=== PATIENT | female | born 1990 | race Caucasian/White ===

== ENCOUNTER 2016-08-04 19:55 | Emergency (ER) | payer OTHER ==
[~2016-08-04] VITALS: Ht 152.4 cm; Wt 94.0 kg
[2016-08-04 20:07] VITALS: BP 128/80; PULSE 81; RESP 18; TEMP 98.1; O2SAT 98
[2016-08-04] MEDS ORDERED: SODIUM CHLOR 0.9% 1000 ML INJ 1,000 ML IV SCH (21:41)
[2016-08-04 21:45] VITALS: BP 123/81; PULSE 73; RESP 16; O2SAT 97
[2016-08-04] MEDS ORDERED: SODIUM CHLORIDE 0.9% FLUSH 5 ML FLUSH IVF PRN (21:45)
[2016-08-04] MEDS ORDERED: ONDANSETRON HCL 4 MG/2 ML VIAL IVP ONE (21:45)
[2016-08-04] MEDS ORDERED: MORPHINE SULFATE 4 MG/ML INJ IV PUSH ONE (21:45)
--- NOTE | 2016-08-04 21:45 | PD ---
HPI . Abdominal pain Chief Complaint: GI Complaint Time Seen by Provider: 21:36 Travel History International Travel<30 days: No Contact w/Intl Traveler<30days: No Traveled to known affect area: No History of Present Illness HPI Patient presents with the acute onset of right-sided abdominal pain associated with nausea and vomiting. This started about 4:30 this afternoon. She reports approximately 10 episodes of emesis. She denies diarrhea. She denies fever. She denies urinary tract symptoms. She denies any previous similar history. PFSH Past Medical History ?: Not Social History Tobacco Use: No Allergies-Medications (Allergen,Severity, Reaction): Coded Allergies: No Known Allergies (Unverified , 08/04/16) Reported Meds & Prescriptions Reported Meds & Active Scripts Active Flomax (Tamsulosin HCl) 0.4 Mg Cap 0.4 Mg PO HS Percocet (Oxycodone-Acetaminophen) 5-325 mg Tab 1-2 Tab PO Q4H PRN Phenergan (Promethazine HCl) 25 Mg Tab 25 Mg PO Q6H PRN Review of Systems Except as stated in HPI: all other systems reviewed are Neg General / Constitutional: No: Fever, Chills Gastrointestinal: Positive: Nausea, Vomiting, Abdominal Pain, No: Diarrhea Genitourinary: Positive: Flank Pain, No: Urgency, Frequency, Dysuria Physical Exam Narrative GENERAL: This is a healthy-appearing young woman in no acute distress. SKIN: Warm and dry. HEAD: Atraumatic. Normocephalic. EYES: Pupils equal and round. ENT: No nasal bleeding or discharge. Mucous membranes pink and moist. NECK: Trachea midline. CARDIOVASCULAR: Regular rate and rhythm. Heart sounds are normal. RESPIRATORY: No accessory muscle use. Lungs are clear with full air movement throughout. GASTROINTESTINAL: Abdomen soft, non-tender, nondistended. I am unable to elicit any tenderness to palpation. Back has no CVA tenderness. MUSCULOSKELETAL: No obvious deformities. No edema. NEUROLOGICAL: Awake and alert. No obvious cranial nerve deficits. Motor grossly within normal limits. Normal speech. PSYCHIATRIC: Appropriate mood and affect; insight and judgment normal. Data Data Last Documented VS Vital Signs Date Time Temp Pulse Resp B/P Pulse Ox O2 Delivery O2 Flow Rate FiO2 08/04/16 21:46 16 98 Room Air 08/04/16 21:45 73 123/81 08/04/16 20:07 98.1 Orders Complete Blood Count With Diff (08/04/16 21:41) Comprehensive Metabolic Panel (08/04/16 21:41) Lipase (08/04/16 21:41) Urinalysis - C+S If Indicated (08/04/16 21:41) Ct Abd/Pel W/O Iv Contrast (08/04/16 21:41) Iv Access Insert/Monitor (08/04/16 21:41) Ecg Monitoring (08/04/16 21:41) Oximetry (08/04/16 21:41) Morphine Inj (Morphine Inj) (08/04/16 21:45) Ondansetron Inj (Zofran Inj) (08/04/16 21:45) Sodium Chlor 0.9% 1000 Ml Inj (Ns 1000 M (08/04/16 21:41) Sodium Chloride 0.9% Flush (Ns Flush) (08/04/16 21:45) Ed Urine Pregnancytest Poc (08/04/16 21:41) Ketorolac Inj (Toradol Inj) (08/05/16 00:00) Tamsulosin (Flomax) (08/05/16 00:00) Oxycodone-Acetamin 10-325 Mg (Percocet 1 (08/05/16 00:00) Labs Laboratory Tests Test 08/04/16 08/04/16 21:15 22:20 Urine Collection Type VOIDED Urine Color YELLOW Urine Turbidity SLIGHT Urine pH 6.5 Urine Specific [place] 1.027 Urine Protein TRACE mg/dL Urine Glucose (UA) NEG mg/dL Urine Ketones NEG mg/dL Urine Occult Blood NEG Urine Nitrite NEG Urine Bilirubin NEG Urine Leukocyte Esterase NEG Urine Squamous Epithelial >8 /hpf Cells Urine Calcium Oxalate Crystals MOD /hpf Urine Bacteria RARE /hpf Urine Mucus FEW /lpf Microscopic Urinalysis Comment CULT NOT INDICATED White Blood Count 16.2 TH/MM3 Red Blood Count 4.49 MIL/MM3 Hemoglobin 13.2 GM/DL Hematocrit 39.1 % Mean Corpuscular Volume 87.1 FL Mean Corpuscular Hemoglobin 29.5 PG Mean Corpuscular Hemoglobin 33.8 % Concent Red Cell Distribution Width 12.5 % Platelet Count 358 TH/MM3 Mean Platelet Volume 8.7 FL Neutrophils (%) (Auto) 93.4 % Lymphocytes (%) (Auto) 3.8 % Monocytes (%) (Auto) 2.3 % Eosinophils (%) (Auto) 0.2 % Basophils (%) (Auto) 0.3 % Neutrophils # (Auto) 15.2 TH/MM3 Lymphocytes # (Auto) 0.6 TH/MM3 Monocytes # (Auto) 0.4 TH/MM3 Eosinophils # (Auto) 0.0 TH/MM3 Basophils # (Auto) 0.0 TH/MM3 CBC Comment DIFF FINAL Differential Comment Sodium Level 140 MEQ/L Potassium Level 3.9 MEQ/L Chloride Level 104 MEQ/L Carbon Dioxide Level 25.9 MEQ/L Anion Gap 10 MEQ/L Blood Urea Nitrogen 12 MG/DL Creatinine 0.85 MG/DL Estimat Glomerular Filtration 80 ML/MIN Rate Random Glucose 141 MG/DL Calcium Level 8.7 MG/DL Total Bilirubin 0.4 MG/DL Aspartate Amino Transf 15 U/L (AST/SGOT) Alanine Aminotransferase 32 U/L (ALT/SGPT) Alkaline Phosphatase 95 U/L Total Protein 7.9 GM/DL Albumin 3.9 GM/DL Lipase 89 U/L [facility] Medical Decision Making Medical Screen Exam Complete: Yes Emergency Medical Condition: Yes Differential Diagnosis Differential diagnosis of abdominal pain includes but is not limited to gastritis, pancreatitis, hepatitis, gastroenteritis, gallbladder disease, constipation, urinary retention, UTI, peptic ulcer disease, diverticulitis or appendicitis Narrative Course Patient presents for evaluation treatment of right sided abdominal pain with associated nausea and vomiting. She has a benign exam. CBC & BMP Diagram 08/04/16 22:20 UA is negative for infection. Liver function studies and lipase are normal. CT>>2 mm right ureterovesical junction stone with mild right hydronephrosis Diagnosis Primary Impression: Right flank pain Additional Impressions: Acute vomiting Renal colic Scripts Tamsulosin (Flomax)0.4 Mg Cap0.4 Mg PO HS #10 CAP Ref 0 Prov:Nita Borges MD 08/04/16 Oxycodone-Acetaminophen (Percocet)5-325 mg Tab1-2 Tab PO Q4H PRN (PAIN) #12 TAB Ref 0 Prov:Nita Borges MD 08/04/16 Promethazine (Phenergan)25 Mg Tab25 Mg PO Q6H PRN (Nausea/Vomiting) #10 TAB Ref 0 Prov:Nita Borges MD 08/04/16 Disposition: 01 DISCHARGE HOME Condition: Stable Nita Borges MD Aug 04, 2016 21:45
[2016-08-04 21:46] VITALS: RESP 16; O2SAT 98
[2016-08-04 22:40] LABS: BLOOD, URINE NEG (NEG); GLUCOSE,URINE NEG (NEG); KETONE, URINE NEG (NEG); NITRITE,URINE NEG (NEG); PH, URINE 6.5 (5.0-8.5)
[2016-08-04 22:41] LABS: AUTOMATED NEUTROPHIL # 15.2 TH/MM3 (1.8-7.7); BASOPHIL % 0.3 % (0.0-2.0); EOSINOPHIL % 0.2 % (0.0-4.0); HEMATOCRIT 39.1 % (35.0-46.0); LYMPH % 3.8 % (9.0-44.0); LYMPHOCYTE # 0.6 TH/MM3 (1.0-4.8); MEAN CELL VOLUME 87.1 FL (80.0-100.0); MEAN CORPUSCULAR HEMOGLOBIN 29.5 PG (27.0-34.0); MEAN CORPUSCULAR HGB CONC 33.8 % (32.0-36.0); MONO % 2.3 % (0.0-8.0); NEUT % 93.4 % (16.0-70.0); PLATELET COUNT 358 TH/MM3 (150-450); RED BLOOD COUNT 4.49 MIL/MM3 (4.00-5.30); RED CELL DISTRIBUTION WIDTH 12.5 % (11.6-17.2); WHITE BLOOD COUNT 16.2 TH/MM3 (4.0-11.0)
[2016-08-04 22:43] LABS: HEMO FLAGS DIFF FINAL
[2016-08-04 22:49] LABS: METHOD OF COLLECTION VOIDED; URINE COLOR YELLOW (YELLW/STRAW)
[2016-08-04 22:49] LABS: CHLORIDE 104 MEQ/L (98-107); POTASSIUM 3.9 MEQ/L (3.5-5.1); SODIUM (NA) 140 MEQ/L (136-145)
[2016-08-04 22:50] LABS: BACTERIA, URINE RARE /hpf; CALCIUM OXALATE CRYSTALS,URINE MOD /hpf; COMMENT (UR) CULT NOT INDICATED; CULTURE IF INDICATED CULT NOT INDICATED; MUCUS URINE FEW /lpf (OCC); SQUAMOUS EPITHELIAL CELL URINE >8 /hpf (0-5)
[2016-08-04 22:53] LABS: ANION GAP 10 MEQ/L (5-15); BICARBONATE 25.9 MEQ/L (21.0-32.0); BLOOD UREA NITROGEN 12 MG/DL (7-18)
[2016-08-04 22:56] LABS: ALT (GPT) 32 U/L (10-53); AST (GOT) 15 U/L (15-37); GLOMERULAR FILTRATION RATE 80 ML/MIN (>89)
[2016-08-04 22:58] LABS: TOTAL BILIRUBIN ADULT 0.4 MG/DL (0.2-1.0)
[2016-08-04 22:59] LABS: ALKALINE PHOSPHATASE 95 U/L (45-117)
[2016-08-04] MEDS ORDERED: PROM25TA5 PO (23:28)
[2016-08-04 23:45] VITALS: BP 131/75; PULSE 86; RESP 16; O2SAT 97
--- NOTE | 2016-08-04 23:49 | RADHPO ---
EXAM DATE/TIME: 08/04/2016 23:18 [place] COMPARISON: No previous studies available for comparison. INDICATIONS : Right flank pain. Nausea and vomiting. ORAL CONTRAST: No oral contrast ingested. RADIATION DOSE: 22.32 CTDIvol (mGy) MEDICAL HISTORY : None SURGICAL HISTORY : None. ENCOUNTER: Initial ACUITY: 3 days PAIN SCALE: 10/10 LOCATION: Right flank TECHNIQUE: Volumetric scanning of the abdomen and pelvis was performed. Using automated exposure control and ad justment of the mA and/or kV according to patient size, radiation dose was kept as low as reasonably achievable to obtain optimal diagnostic quality images. FINDINGS: Examination of the lung bases demonstrates no abnormality. No pleural fluid is identified. No pulmona ry nodules are present. The liver and spleen are normal in size and no focal defects are identified. The gallbladder and pancreas are unremarkable. No intrahepatic or extrahepatic ductal dilatation is s een. The adrenal glands are unremarkable. The left kidney is unremarkable. There is a 2 mm stone at t he right ureterovesical junction with mild right hydronephrosis. Examination of the pelvis demonstrates no evidence of free fluid or pelvic mass. No abnormally enlarg ed inguinal or retroperitoneal lymph nodes are present. The bladder is unremarkable. There is a singl e simple cyst in the right kidney measuring 2.5 cm. CONCLUSION: 1. 2 mm right ureterovesical junction stone with mild right hydronephrosis Tho Erazo MD on August 04, 2016 at 23:45 Board Certified Radiologist. This report was verified electronically.
[2016-08-04] MEDS ORDERED: TAMS5CAP PO (23:55)
[2016-08-04] MEDS ORDERED: PERC5TAB12 PO (23:55)
[2016-08-05] MEDS ORDERED: TAMSULOSIN HCL 0.4 MG CAP PO ONE
[2016-08-05] MEDS ORDERED: oxyCODONE/ACETAMINOPHEN 10 MG/325 MG TAB PO ONE
[2016-08-05] MEDS ORDERED: KETOROLAC TROMETHAMINE 30 MG/ML (IVP) VIAL IV PUSH ONE
[2016-08-05 00:44] VITALS: BP 113/70; PULSE 74; RESP 16; O2SAT 97
[2016-08-05 01:05] VITALS: RESP 16
== END 2016-08-05 01:05 | disposition home or self-care (01) ==
LOC: PHED 19:55
DX: R10.9 Unspecified abdominal pain (principal); R11.2 Nausea with vomiting, unspecified; N23 Unspecified renal colic
CPT/HCPCS: 74176; 80053; 81001; 83690; 84703; 85025; 96361; 96374; 96375; 99284; J1885; J2270; J2405; J7030